=== PATIENT | male | born 1970 | race Caucasian/White ===

== ENCOUNTER 2022-02-17 08:17 | Outpatient (CLI) | payer OTHER, SELFPAY ==
[2022-02-17 12:26] LABS: Albumin* 4.2 g/dL (3.3-5.0)
[2022-02-17 12:27] LABS: Chloride* 108 mmol/L (96-114); Potassium* 4.2 mmol/L (3.6-5.1); Sodium* 139 mmol/L (135-149)
[2022-02-17 12:29] LABS: Aspartate Amino Transferase* 27 U/L (12-35); Bilirubin Direct* 0.4 mg/dL (0.0-0.5); Bilirubin Total* 0.9 mg/dL (0.1-1.5); Blood Urea Nitrogen* 14 mg/dL (7-30); Carbon Dioxide* 23 mmol/L (20-32); Cholesterol* 146 mg/dL (90-199); Creatinine* 0.9 mg/dL (0.5-1.5); Glucose* 97 mg/dL (60-115); Total Protein* 6.9 g/dL (6.0-8.3)
[2022-02-17 12:30] LABS: Alanine Aminotransferase* 25 U/L (4-50); Alkaline Phosphatase* 59 U/L (40-150); HDL Cholesterol* 31 mg/dL (>=40); LDL Cholesterol Calculated 97 mg/dL (<100); Triglycerides* 92 mg/dL (40-149)
== END 2022-02-17 08:18 | disposition home or self-care (01) ==
PROVIDERS: PCP Family Medicine; Visit Provider Family Medicine
DX: E78.5 Hyperlipidemia, unspecified (principal); I10 Essential (primary) hypertension; N52.9 Male erectile dysfunction, unspecified; H69.80 Other specified disorders of Eustachian tube, unspecified ear; G43.909 Migraine, unspecified, not intractable, without status migrainosus
CPT/HCPCS: 80048; 80061; 80076

== ENCOUNTER 2022-05-22 10:30 | Outpatient (CLI) | payer OTHER, SELFPAY | END 2022-05-22 10:31 | disposition home or self-care (01) | LOC: FRMREF 10:31 | PROVIDERS: PCP Family Medicine; Visit Provider Family Medicine | DX: Q18.8 Other specified congenital malformations of face and neck (principal) | CPT/HCPCS: 84443 ==

== ENCOUNTER 2022-05-26 08:27 | Outpatient (CLI) | payer OTHER, SELFPAY ==
--- NOTE | 2022-05-26 11:19 | W.ANESCHARGE ---
Anesthesia Charges Start Date/Time Anesthesia Start Date: 05/26/22 Anesthesia Start Time: 09:20 Stop Date/Time Anesthesia Stop Date: 05/26/22 Anesthesia Stop Time: 09:45 Summary Emergency: No
--- NOTE | 2022-05-26 11:59 | W.ANESCHARGE ---
Anesthesia Charges Start Date/Time Anesthesia Start Date: 05/26/22 Anesthesia Start Time: 09:20 Stop Date/Time Anesthesia Stop Date: 05/26/22 Anesthesia Stop Time: 09:45 Summary Emergency: No
== END 2022-05-26 08:28 | disposition home or self-care (01) ==
LOC: OP CLINIC 08:28
PROVIDERS: PCP Family Medicine; Visit Provider Internal Medicine
DX: Z12.11 Encounter for screening for malignant neoplasm of colon (principal); K64.8 Other hemorrhoids; K57.30 Diverticulosis of large intestine without perforation or abscess without bleeding; Z86.010 Personal history of colon polyps
CPT/HCPCS: 00812; 45378; J2704

== ENCOUNTER 2024-01-15 07:10 | Outpatient (CLI) | payer OTHER, SELFPAY | END 2024-01-15 07:11 | disposition home or self-care (01) | PROVIDERS: PCP Family Medicine; Visit Provider Family Medicine | DX: E78.5 Hyperlipidemia, unspecified (principal); I10 Essential (primary) hypertension; Z12.5 Encounter for screening for malignant neoplasm of prostate; Z11.59 Encounter for screening for other viral diseases | CPT/HCPCS: 80053; 80061; 82043; 82570; 86803; G0103 ==

== ENCOUNTER 2025-04-24 08:00 | Outpatient (CLI) | payer OTHER, SELFPAY | END 2025-04-24 08:01 | disposition home or self-care (01) | LOC: FRMREF 08:02 | PROVIDERS: PCP Family Medicine; Visit Provider Family Medicine | DX: I10 Essential (primary) hypertension (principal); E78.5 Hyperlipidemia, unspecified; Z12.5 Encounter for screening for malignant neoplasm of prostate | CPT/HCPCS: 80053; 80061; 82043; 82570; G0103 ==